=== PATIENT | female | born 1990 | race African-American/Black ===

== ENCOUNTER 2016-08-08 22:09 | Emergency (ER) | payer BC, MEDICAID ==
[~2016-08-08] VITALS: Ht 162.6 cm; Wt 93.0 kg
[~2016-08-08 22:09] MED LIST: ALBUTEROL; MOTRIN; ZOLOFT
[2016-08-08] MEDS ORDERED: IBUPROFEN 600MG TABLET PO ONE (23:30)
[2016-08-09 02:28] VITALS: BP 130/77
== END 2016-08-09 02:30 | disposition home or self-care (01) ==
LOC: ER 22:10
DX: M25.561 Pain in right knee (principal); Z79.899 Other long term (current) drug therapy; W01.0XXA Fall on same level from slipping, tripping and stumbling without subsequent striking against object, initial encounter; Y93.89 Activity, other specified; Y99.9 Unspecified external cause status; Y92.89 Other specified places as the place of occurrence of the external cause
CPT/HCPCS: 73562; 81025; 99284

== ENCOUNTER 2018-07-11 20:11 | Emergency (ER) | payer BC, MEDICAID ==
[~2018-07-11] VITALS: Ht 162.6 cm; Wt 109.0 kg
[2018-07-11] MEDS ORDERED: IBUPROFEN 600MG TABLET PO ONE (22:45)
[2018-07-11 23:48] VITALS: BP 141/92
== END 2018-07-11 23:48 | disposition home or self-care (01) ==
LOC: ER 20:11
DX: H01.005 Unspecified blepharitis left lower eyelid (principal); J45.909 Unspecified asthma, uncomplicated
CPT/HCPCS: 81025; 99283

== ENCOUNTER 2019-01-29 13:24 | Emergency (ER) | payer BC, MEDICAID, OTHER ==
[~2019-01-29] VITALS: Ht 172.7 cm; Wt 106.5 kg
[2019-01-29] MEDS ORDERED: SODIUM CHLORIDE 0.9% 1,000 ML IV ONE (13:26)
[2019-01-29] MEDS ORDERED: ASPI-864 PO (13:37)
[2019-01-29 13:56] LABS: BASOPHILS % 0.4 % (0.0-2.0); EOSINOPHILS % 3.3 % (0.0-5.0); HEMATOCRIT. 40.2 % (36.0-48.0); HEMOGLOBIN. 13.8 g/dL (12.0-16.0); LYMPHOCYTES % 34.9 % (20.0-50.0); MEAN CORPUSCULAR HEMOGLOBIN 29.2 pg (28.0-32.0); MEAN CORPUSCULAR VOLUME 85.3 fL (81.0-99.0); MONOCYTES % 3.8 % (2.0-8.0); NEUTROPHILS % 57.6 % (40.0-76.0); PLATELET 247 x1000/uL (130-400); RED BLOOD CELL COUNT 4.71 mill/uL (4.2-5.4); RED CELL DISTRIBUTION WIDTH 12.4 % (11.6-14.6)
[2019-01-29 14:03] LABS: CHLORIDE 107 mEq/L (98-107)
[2019-01-29 14:04] LABS: PROTHROMBIN TIME 10.8 sec (9.6-11.0)
[2019-01-29 14:07] LABS: HCG SCREEN NEGATIVE
[2019-01-29 14:09] LABS: ETHANOL BLOOD < 10 mg/dL
[2019-01-29 14:11] LABS: LDL CHOLESTEROL 56 mg/dL (5-100)
[2019-01-29 14:14] LABS: CREATINE KINASE 112 IU/L (26-192)
[2019-01-29] MEDS ORDERED: ALTEPLASE 100MG/VIAL IV ONE (14:30)
[2019-01-29] MEDS ORDERED: ALTEPLASE 81 MG in BAG 1 EACH IV ONE (14:30)
[2019-01-29 14:56] LABS: CLARITY URINE CLOUDY (CLEAR); COLOR URINE YELLOW (YELLOW); KETONES URINE NEGATIVE (NEGATIVE); LEUKOCYTE ESTERASE URINE 1+ (NEGATIVE); NITRITE URINE NEGATIVE (NEGATIVE); OCCULT BLOOD URINE TRACE (NEGATIVE); PH URINE 7.5 (4.5-8.0); PROTEIN URINE NEGATIVE (NEGATIVE); SPECIFIC GRAVITY URINE 1.033 (1.005-1.030); UROBILINOGEN URINE 0.2 E.U./dL (0.2-1.0)
[2019-01-29] MEDS ORDERED: *NO ASPIRIN X 24 HOURS XX SCH (15:00)
[2019-01-29] MEDS ORDERED: IOHEXOL-350 100 ML BOTTLE ONE (15:00)
[2019-01-29 15:12] LABS: *AMPHETAMINES SCREEN URINE NEGATIVE (NEGATIVE); *BARBITURATES SCREEN URINE NEGATIVE (NEGATIVE)
[2019-01-29 15:13] LABS: *BENZODIAZEPINES SCREEN URINE NEGATIVE (NEGATIVE); *COCAINE SCREEN URINE NEGATIVE (NEGATIVE); CANNABINOID URINE SCREEN NEGATIVE (NEGATIVE); METHADONE URINE SCREEN NEGATIVE (NEGATIVE); OPIATES URINE SCREEN NEGATIVE (NEGATIVE); PHENCYCLIDINE URINE SCREEN NEGATIVE (NEGATIVE)
[2019-01-29 15:35] VITALS: BP 144/70
== END 2019-01-29 15:48 | disposition short-term general hospital (02) ==
LOC: ER 13:24
DX: I63.9 Cerebral infarction, unspecified (principal); R29.715 NIHSS score 15; R56.9 Unspecified convulsions; Z86.73 Personal history of transient ischemic attack (TIA), and cerebral infarction without residual deficits; Z92.82 Status post administration of tPA (rtPA) in a different facility within the last 24 hours prior to admission to current facility
CPT/HCPCS: 36415; 37195; 70450; 70496; 70498; 71045; 80053; 80305; 80320; 81003; 81025; 82550; 82962; 83721; 83880; 84484; 84703; 85025; 85610; 86850; 86900; 86901; 93005; 99291; J2997; J7030; Q9967; G0480

== ENCOUNTER 2019-04-05 10:12 | Emergency (ER) | payer OTHER ==
[~2019-04-05] VITALS: Ht 167.6 cm; Wt 104.0 kg
[~2019-04-05 10:12] MED LIST changes: +ASPI-864 PO
[2019-04-05 10:14] VITALS: BP 129/84
== END 2019-04-05 10:50 | disposition home or self-care (01) ==
LOC: ER 10:21
DX: B99.9 Unspecified infectious disease (principal); H10.89 Other conjunctivitis; Z86.73 Personal history of transient ischemic attack (TIA), and cerebral infarction without residual deficits; Z88.8 Allergy status to other drugs, medicaments and biological substances; Z79.82 Long term (current) use of aspirin
CPT/HCPCS: 99283

== ENCOUNTER 2022-11-29 13:56 | Observation (INO) | payer OTHER ==
[~2022-11-29] VITALS: Ht 162.6 cm; Wt 113.9 kg
[~2022-11-29 13:56] MED LIST changes: +ALBU6.7H3 INH; -ALBUTEROL; -ASPI-864 PO; +DOCU-138 MT; +FERR325T23 MT; +LEVE10006 MT; -MOTRIN; +OFLO5DRO4 RIGHT EAR; +PNV11TAB5 PO; +TOPUD MT; -ZOLOFT
[2022-11-29] MEDS ORDERED: ACETAMINOPHEN 500MG TABLET PO PRN (14:45)
[2022-11-29] MEDS ORDERED: LACTATED RINGERS 1,000 ML IV SCH (14:45)
[2022-11-29 16:27] LABS: CLARITY URINE CLEAR (CLEAR); COLOR URINE YELLOW (YELLOW); KETONES URINE TRACE (NEGATIVE); LEUKOCYTE ESTERASE URINE NEGATIVE (NEGATIVE); NITRITE URINE NEGATIVE (NEGATIVE); OCCULT BLOOD URINE NEGATIVE (NEGATIVE); PH URINE 6.5 (4.5-8.0); PROTEIN URINE NEGATIVE (NEGATIVE); SPECIFIC GRAVITY URINE 1.022 (1.005-1.030); UROBILINOGEN URINE 0.2 E.U./dL (0.2-1.0)
[2022-11-29 16:46] LABS: BASOPHILS % 0.2 % (0.0-2.0); EOSINOPHILS % 0.7 % (0.0-5.0); HEMATOCRIT. 31.9 % (36.0-48.0); MEAN CORPUSCULAR VOLUME 87.4 fL (81.0-99.0); MEAN PLATELET VOLUME 8.7 fl (7.4-10.4); NEUTROPHILS % 80.1 % (40.0-76.0); PLATELET 218 x1000/uL (130-400); RED BLOOD CELL COUNT 3.66 mill/uL (4.2-5.4); RED CELL DISTRIBUTION WIDTH 12.9 % (11.6-14.6)
[2022-11-29 16:56] LABS: CHLORIDE 109 mEq/L (98-107)
[2022-11-29 16:57] LABS: *AMPHETAMINES SCREEN URINE NEGATIVE (NEGATIVE); *BARBITURATES SCREEN URINE NEGATIVE (NEGATIVE); *BENZODIAZEPINES SCREEN URINE NEGATIVE (NEGATIVE); *COCAINE SCREEN URINE NEGATIVE (NEGATIVE); CANNABINOID URINE SCREEN NEGATIVE (NEGATIVE); METHADONE URINE SCREEN NEGATIVE (NEGATIVE); OPIATES URINE SCREEN NEGATIVE (NEGATIVE); PHENCYCLIDINE URINE SCREEN NEGATIVE (NEGATIVE)
[2022-11-29 16:58] LABS: D-DIMER 0.8 mg/L FEU (<0.50); INR 0.9; PARTIAL THROMBOPLASTIN TIME 30.3 sec (23.4-31.0); PROTHROMBIN TIME 10.1 sec (9.6-11.0)
== END 2022-11-29 17:50 | disposition home or self-care (01) ==
LOC: 8 EST LDRP 13:56
PROVIDERS: ADMIT Obstetrics & Gynecology; ATTEND Obstetrics & Gynecology
DX: O26.892 Other specified pregnancy related conditions, second trimester (principal); R51.9 Headache, unspecified; R10.9 Unspecified abdominal pain; Z3A.24 24 weeks gestation of pregnancy; Z79.899 Other long term (current) drug therapy
CPT/HCPCS: 59025; 80053; 80305; 81003; 84550; 85025; 85379; 85384; 85610; 85730; 36415; G0378 ×2; 99281

== ENCOUNTER 2023-10-29 23:45 | Emergency (ER) | payer OTHER ==
[~2023-10-29] VITALS: Ht 167.6 cm; Wt 132.0 kg
[2023-10-30 00:10] VITALS: O2SAT 98
[2023-10-30] MEDS ORDERED: ACETAMINOPHEN 325MG TABLET PO ONE (01:30)
[2023-10-30] MEDS ORDERED: LEVETIRACETAM 1000MG PREMIX 100 ML IV ONE (01:30)
[2023-10-30] MEDS: ACETAMINOPHEN 650MG/20.3ML UDC PO ONE (03:30)
[2023-10-30] MEDS: FLUORESCEIN SODIUM 1MG/STRIP BOTHEYE ONE (03:30)
[2023-10-30] MEDS: TETRACAINE 0.5% OPHTH DROPS 4ML BOTHEYE ONE (03:30)
[2023-10-30] MEDS ORDERED: ERYT1OIN6 EACHEYE (04:52)
[2023-10-30] MEDS ORDERED: ACET-2708 MT (04:53)
[2023-10-30] MEDS ORDERED: MED4 MT (05:04)
[2023-10-30 05:45] VITALS: BP 132/79; PULSE 88; RESP 20; TEMP 97.8
== END 2023-10-30 06:10 | disposition home or self-care (01) ==
LOC: ER 23:45
DX: H10.9 Unspecified conjunctivitis (principal); J45.909 Unspecified asthma, uncomplicated; I10 Essential (primary) hypertension; Z88.8 Allergy status to other drugs, medicaments and biological substances; Z79.899 Other long term (current) drug therapy; Z00.00 Encounter for general adult medical examination without abnormal findings; Z86.59 Personal history of other mental and behavioral disorders
CPT/HCPCS: 81025; 99283